=== PATIENT | female | born 2000 | race American Indian/Alaskan Native ===

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

== ENCOUNTER 2021-02-27 08:48 | Emergency (ER) | payer MEDICAID ==
[2021-02-27 08:55] VITALS: BP 143/84
--- NOTE | 2021-02-27 08:59 | Emergency Department Report ---
ED Abdominal Pain HPI - General Chief Complaint: Abdominal Pain Stated Complaint: ABD PAIN PUI?: No Time Seen by Provider: 02/27/21 08:57 Source: patient Mode of arrival: Ambulatory Limitations: No Limitations - History of Present Illness Initial Comments: Patient is a 20-year-old obese female that comes to the emergency room co mplaining of abdominal pain. She denies nausea vomiting or diarrhea. The pain is diffuse. She states that she feels constipated. Patient states she was only able to have a small stool yesterday but she feels like she has to urinate. She denies any nausea or vomiting. She has just finished her menses. Patient denies any dysuria. Patient denies any vaginal discharge. Patient also endorses a cough. She denies any fever. Patient is ambulatory nontoxic and [id number] on arrival to the ER. MD Complaint: abdominal pain - Related Data Previous Rx's Medication Instructions Recorded Last Taken Type Ciprofloxacin HCl [Ciprofloxacin 500 mg PO Q12HR #14 tab 02/09/20 Unknown Rx TAB] Dicyclomine [Bentyl] 20 mg PO QID #10 tablet 02/09/20 Unknown Rx Ondansetron [Zofran Odt] 4 mg PO Q8HR #10 tab.rapdis 02/09/20 Unknown Rx metroNIDAZOLE [Flagyl] 500 mg PO Q12HR #14 tab 02/09/20 Unknown Rx traMADoL [Ultram] 50 mg PO Q6HR PRN #12 tablet 02/09/20 Unknown Rx cephALEXin [Keflex] 500 mg PO BID 7 Days #14 cap 05/01/20 Unknown Rx Naproxen 500 mg PO Q12H PRN #12 tablet 11/25/20 Unknown Rx Sulfamethoxazole/Trimethoprim 1 each PO BID #10 tablet 02/27/21 Unknown Rx [Bactrim DS TAB] bisacodyL [Dulcolax suppos] 10 mg DE QDAY #3 supp.rect 02/27/21 Unknown Rx Allergies Allergy/AdvReac Type Severity Reaction Status Date / Time No Known Allergies Allergy Unverified 02/09/20 11:35 ED Review of Systems ROS: Stated complaint: ABD PAIN Other details as noted in HPI Comment: All other systems reviewed and negative ED Past Medical Hx - Past Medical History Additional medical history: chrons - Surgical History Past Surgical History?: No Additional Surgical History: Tonsilectomy - Family History Family history: no significant - Social History Smoking Status: Current Every Day Smoker Substance Use Type: None - Medications Home Medications: Home Medications Medication Instructions Recorded Confirmed Last Taken Type Ciprofloxacin HCl [Ciprofloxacin 500 mg PO Q12HR #14 tab 02/09/20 Unknown Rx TAB] Dicyclomine [Bentyl] 20 mg PO QID #10 tablet 02/09/20 Unknown Rx Ondansetron [Zofran Odt] 4 mg PO Q8HR #10 tab.rapdis 02/09/20 Unknown Rx metroNIDAZOLE [Flagyl] 500 mg PO Q12HR #14 tab 02/09/20 Unknown Rx traMADoL [Ultram] 50 mg PO Q6HR PRN #12 tablet 02/09/20 Unknown Rx cephALEXin [Keflex] 500 mg PO BID 7 Days #14 cap 05/01/20 Unknown Rx Naproxen 500 mg PO Q12H PRN #12 tablet 11/25/20 Unknown Rx Sulfamethoxazole/Trimethoprim 1 each PO BID #10 tablet 02/27/21 Unknown Rx [Bactrim DS TAB] bisacodyL [Dulcolax suppos] 10 mg DE QDAY #3 supp.rect 02/27/21 Unknown Rx ED Physical Exam - General Limitations: No Limitations General appearance: alert, in no apparent distress - Head Head exam: Present: atraumatic, normocephalic - Eye Eye exam: Present: normal appearance - ENT ENT exam: Present: mucous membranes moist - Neck Neck exam: Present: normal inspection - Respiratory Respiratory exam: Present: normal lung sounds bilaterally. Absent: respiratory distress - Cardiovascular Cardiovascular Exam: Present: regular rate, normal rhythm. Absent: systolic murmur, diastolic murmur, rubs, gallop - GI/Abdominal GI/Abdominal exam: Present: soft, normal bowel sounds - Extremities Exam Extremities exam: Present: normal inspection - Back Exam Back exam: Present: normal inspection - Neurological Exam Neurological exam: Present: alert, oriented X3 - Psychiatric Psychiatric exam: Present: normal affect, normal mood - Skin Skin exam: Present: warm, dry, intact, normal color. Absent: rash ED Course Vital Signs 02/27/21 08:50 Temperature 98.2 F Pulse Rate 104 H Respiratory 15 Rate Blood Pressure 143/84 O2 Sat by Pulse 100 Oximetry ED Medical Decision Making - Lab Data Result diagrams: 02/27/21 09:02 02/27/21 09:02 - Radiology Data Radiology results: report reviewed, image reviewed nap - Medical Decision Making Labs 02/27/21 02/27/21 02/27/21 09:02 09:02 09:30 WBC 4.5 RBC 4.76 Hgb 13.4 Hct 39.6 MCV 83 MCH 28 MCHC 34 RDW 14.8 Plt Count 278 Sodium 140 Potassium 3.4 L Chloride 105.4 Carbon Dioxide 27 Anion Gap 11 BUN 7 Creatinine 0.8 Estimated GFR > 60 BUN/Creatinine Ratio 9 Glucose 98 Calcium 9.3 Total Bilirubin 0.20 AST 12 ALT 10 Alkaline Phosphatase 84 Total Protein 7.0 Albumin 4.0 Albumin/Globulin Ratio 1.3 Lipase 14 Urine Color Yellow Urine Turbidity Slightly-cloudy Urine pH 6.0 Ur Specific [place] 1.020 Urine Protein 30 mg/dl Urine Glucose (UA) Neg Urine Ketones Tr Urine Blood Mod Urine Nitrite Neg Urine Bilirubin Neg Urine Urobilinogen < 2.0 Ur Leukocyte Esterase Tr Urine WBC (Auto) 26.0 H Urine RBC (Auto) 42.0 U Epithel Cells (Auto) 5.0 Urine Mucus 3+ Urine HCG, Qual Negative Vital Signs 02/27/21 08:50 Temperature 98.2 F Pulse Rate 104 H Respiratory 15 Rate Blood Pressure 143/84 O2 Sat by Pulse 100 Oximetry Labs noted. UA noted. U. Pred negative X-ray noted. Patient denies any vaginal discharge. She is not concerned for STD. Patient being discharged home with treatment for her UTI and a prescription for suppositories. Patient verbalizes understanding of discharge plan of care. She is also been given referral to PCP follow-up. Patient verbalizes understanding of plan of care - Differential Diagnosis constipation/ ro preg/ro uti Critical care attestation.: If time is entered above; I have spent that time in minutes in the direct care of this critically ill patient, excluding procedure time. ED Disposition Clinical Impression: Constipation, UTI (urinary tract infection) Disposition: DC- TO HOME OR SELFCARE Is pt being admited?: No Does the pt Need Aspirin: No Condition: Stable Instructions: Constipation, Adult, Urinary Tract Infection, Adult, Abdominal Pain (ED) Additional Instructions: MEDS ORDERED TODAY FOLLOW UP WITH PCP AFTER MEDS ARE COMPLETED TO BE SURE INFECTION GOES AWAY REFERRAL BELOW STAY WELL HYDRATED Prescriptions: Sulfamethoxazole/Trimethoprim [Bactrim DS TAB] 1 each PO BID #10 tablet bisacodyL [Dulcolax suppos] 10 mg DE QDAY #3 supp.rect Referrals: PRIMARY CAREMD [Primary Care Provider] - 3-5 Days WILLIAM ENGLAND MD [Staff Physician] - 3-5 Days Forms: Work/School Release Form(ED) Time of Disposition: 11:28
[2021-02-27 09:30] LABS: Hematocrit 39.6 % (30.3-42.9); Hemoglobin 13.4 gm/dl (10.1-14.3); Mean Corpuscular HGB Conc 34 % (30-34); Mean Corpuscular Volume 83 fl (79-97); Platelet Count 278 K/mm3 (140-440); Red Blood Count 4.76 M/mm3 (3.65-5.03); Red Cell Distribution Width 14.8 % (13.2-15.2)
[2021-02-27 09:36] LABS: Alanine Aminotransferase 10 units/L (7-56); BUN/Creatinine Ratio 9; Blood Urea Nitrogen 7 mg/dL (7-17); Calcium 9.3 mg/dL (8.4-10.2); Hemolysis Index 6
[2021-02-27 10:02] LABS: Bilirubin,Urine NEG (Negative); Blood,Urine MOD (Negative); Color,Urine Yellow (Yellow); Mucus,Urine 3+ /HPF; Urobilinogen,Urine < 2.0 mg/dL (<2.0)
[2021-02-27 10:05] LABS: HCG Qualitative,Urine Negative (Negative)
--- NOTE | 2021-02-27 10:47 | XRay Report ---
ABDOMEN 3 VIEW(S) INDICATION / CLINICAL INFORMATION: CP AND ABD PAIN. COMPARISON: None available. FINDINGS: TUBES / LINES: None. BOWEL GAS PATTERN: No significant abnormality. FREE AIR / EXTRALUMINAL GAS: None seen. ADDITIONAL FINDINGS: No significant additional findings. LUNGS: Visualized lungs show no significant abnormality. IMPRESSION: 1. No significant abnormality. Signer Name: Barber Jacobsen MD Signed: 02/27/2021 10:42 AM Workstation Name: [id number]
== END 2021-02-27 11:37 | disposition home or self-care (01) ==
LOC: ED 08:48
DX: N39.0 Urinary tract infection, site not specified (principal); F17.200 Nicotine dependence, unspecified, uncomplicated; Z79.899 Other long term (current) drug therapy
CPT/HCPCS: 36415; 74022; 80053; 81001; 81025; 83690; 85027; 87086